=== PATIENT | male | born 1990 | race Caucasian/White ===

== ENCOUNTER 2017-09-18 01:02 | Emergency (ER) | payer OTHER ==
[~2017-09-18] VITALS: Ht 182.9 cm; Wt 72.6 kg
[2017-09-18 01:02] VITALS: BP_SYST 132
[2017-09-18 01:40] VITALS: BP_SYST 132
== END 2017-09-18 01:04 ==
LOC: SED 01:02
DX: Z02.89 Encounter for other administrative examinations (principal); V89.2XXA Person injured in unspecified motor-vehicle accident, traffic, initial encounter; Y93.89 Activity, other specified; Y92.89 Other specified places as the place of occurrence of the external cause; Y99.8 Other external cause status
CPT/HCPCS: 99283